=== PATIENT | female | born 1995 | race Caucasian/White ===

== ENCOUNTER 2019-05-21 22:43 | Emergency (ER) | payer BC ==
[2019-05-21] MEDS ORDERED: NA CHLORIDE 0.9% 1,000 ML ONE (23:39)
[2019-05-22] LABS: Urine Blood NEGATIVE (NEG); Urine Glucose NEGATIVE (NEG); Urine Protein NEGATIVE (NEG)
--- NOTE | 2019-05-22 01:03 | ER ---
Nurse's Notes [facility] Name: Pilar Chin Age: 23 yrs Sex: Female : 1995 Arrival Date: 05/21/2019 Time: 22:59 Bed 17 Private MD: Diagnosis: Alcohol abuse with intoxication Presentation: 05/21 23:01 Presenting complaint: EMS states: Friend called EMS Pt was found underneath the stairs, wh Pt was drinking states she had too much too drink, denies taking any other substances. Transition of care: patient was not received from another setting of care. Onset of symptoms was May 21, 2019. Risk Assessment: Do you want to hurt yourself or someone else? Patient reports no desire to harm self or others. Initial Sepsis Screen: Does the patient meet any 2 criteria? No. Patient's initial sepsis screen is negative. Does the patient have a suspected source of infection? No. Patient's initial sepsis screen is negative. Care prior to arrival: None. 23:01 Method Of Arrival: EMS: [facility] 23:01 Acuity: CYNTHIA 3 Triage Assessment: 23:16 General: Appears in no apparent distress. unkempt, Behavior is cooperative, anxious, cc3 Smells of alcohol. Pain: Denies pain. 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 - Social history:: Smoking status: Patient uses tobacco products, unknown amount. - Ebola Screening: : Patient negative for fever greater than or equal to 101.5 degrees Fahrenheit, and additional compatible Ebola Virus Disease symptoms Patient denies exposure to infectious person. - Family history:: not pertinent. - Hospitalizations: : No recent hospitalization is reported. Screenin:03 Abuse screen: Denies threats or abuse. Denies injuries from another. Nutritional screening: No deficits noted. Tuberculosis screening: No symptoms or risk factors identified. Fall Risk None identified. Assessment: 23:10 General: Appears in no apparent distress. unkempt, Behavior is cooperative, anxious, cc3 Smells of alcohol. Pain: Denies pain. Neuro: Level of Consciousness is awake, alert, obeys commands, Oriented to person, place, time. Cardiovascular: Denies chest pain, Capillary refill < 3 seconds Patient's skin is warm and dry. Respiratory: Airway is patent Respiratory effort is even, unlabored, Respiratory pattern is regular, symmetrical. GI: Abdomen is flat. : No signs and/or symptoms were reported regarding the genitourinary system. EENT: No signs and/or symptoms were reported regarding the EENT system. Derm: Skin is intact, is healthy with good turgor, Skin is pink, warm \T\ dry. normal. Musculoskeletal: Circulation, motion, and sensation intact. Range of motion: intact in all extremities. 23:20 Reassessment: Patient freaked out looking for her apartment and car keys and wanting to cc3 speak to the EMS staff who brought her here. Informed charge nurse Karly. 23:30 Reassessment: ED policy change clerk Dru called [facility] and spoke with EMS staff named cc3 Shahid and was told that they got nothing from the patient and that her belongings might be in her friend's house, patient informed but she still freaks out. Charge nurse Karly and Dr. Lucas informed. 05/22 00:00 Reassessment: Patient appears in no apparent distress at this time. Patient and/or cc3 family updated on plan of care and expected duration. Pain level reassessed. Patient's family with her father came and spoke with Dr. Lucas. 00:15 Reassessment: Pt requesting someone to talk to EMS re: her purse, keys and car. Spoke fc with Shahid from EMS and he states that pt only came here with her phone. This was told to pt and her family that were at the bedside. 00:30 Reassessment: Patient intentionally pulled out her IV cannula. cc3 00:34 Reassessment: Patient's father requested for police escort when the patient's discharge cc3 home; [place] police number given to patient's father. 01:00 Reassessment: Patient appears in no apparent distress at this time. Patient and/or cc3 family updated on plan of care and expected duration. Pain level reassessed. Patient is alert, oriented x 3, equal unlabored respirations, skin warm/dry/pink. Dr. Lucas discharged the patient home, no prescription given. IV cannula removed and patient left ER vitally stable and ambulatory with her family and father. Patient denies pain at this time. Patient states feeling better. Vital Signs: 05/21 23:05 BP 101 / 75; Pulse 80; Resp 18; Temp 97.2; Pulse Ox 99% ; wh 05/22 00:44 BP 105 / 67; Pulse 85; Resp 16 S; Pulse Ox 99% on R/A; cc3 ED Course: 05/21 22:59 Patient arrived in ED. 23:03 Triage completed. 23:05 Patient has correct armband on for positive identification. Bed in low position. Call light in reach. Side rails up X 1. Pulse ox on. NIBP on. 23:08 Fernando Lucas MD is Attending Physician. rn 23:10 Arm band placed on right wrist. Patient notified of wait time. cc3 23:16 Yasmin Camejo is Primary Nurse. cc3 23:33 Inserted saline lock: 22 gauge in left antecubital area, using aseptic technique. cm6 05/22 01:00 No provider procedures requiring assistance completed. IV discontinued, intact, cc3 bleeding controlled, No redness/swelling at site. Pressure dressing applied. Administered Medications: 05/21 23:48 Drug: NS 0.9% 1000 ml Route: IV; Rate: 1000 ml; Site: left antecubital; cc3 05/22 00:30 Follow up: Response: No adverse reaction; IV Status: patient intentionally pulled out cc3 her IV; IV Intake: 600ml Intake: 00:30 IV: 600ml; Total: 600ml. cc3 Outcome: 00:51 Discharge ordered by MD. rn 01:00 Discharged to home ambulatory, with family. cc3 01:00 Condition: stable 01:00 Discharge instructions given to patient, family, Instructed on discharge instructions, follow up and referral plans. Demonstrated understanding of instructions, follow-up care. 01:11 Patient left the ED. cc3 Signatures: Karly Parish RN RN Fernando Lucas MD MD rn Habalo, Winsy Yasmin Camejo cc3 Salma Douglass cm6 Corrections: (The following items were deleted from the chart) 00:37 05/21 23:30 Reassessment: ED policy change clerk Dru called [facility] and spoke with EMS cc3 staff named Shahid and was told that they got nothing from the patient and that her belongings might be in her friend's house, patient informed but she still freaks out. Charge nurse Karly and Dr. Lucas informed. cc3 05/22 03:13 00:34 Reassessment: Patient's father requested for police escort when the patient's cc3 discharge home, informed ED policy change clerkalma delia Gonsales and said he will call the police. cc3 03:18 08 23:30 Reassessment: ED policy change clerkalma delia Gonsales called [facility] and spoke with EMS cc3 staff named Shahid and was told that they got nothing from the patient and that her belongings might be in her friend's house, patient informed but she still freaks out and pulled out her IV cannula. Charge nurse Karly and Dr. Lucas informed. cc3
--- NOTE | 2019-05-22 01:04 | EDPHYS ---
Physician Documentation [facility] Name: Pilar Chin Age: 23 yrs Sex: Female : 1995 Arrival Date: 05/21/2019 Time: 22:59 Bed 17 Private MD: ED Physician Fernando Lucas HPI: 05/22 00:18 This 23 yrs old Female presents to ER via EMS with complaints of ETOH Abuse. rn 00:20 Per EMS, patient was drinking today, friend called 911 because not able to wake her up rn and unable to pick her up off ground. Patient more alert upon arrival, no meds given, admits to several drinks of liquor today, denies drug use, no trauma, denies medical complaints. . 00:41 Onset: The symptoms/episode began/occurred today. Severity of symptoms: At their worst rn the symptoms were moderate in the emergency department the symptoms are unchanged. The patient has not experienced similar symptoms in the past. The patient has not recently seen a physician. 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 - Social history:: Smoking status: Patient uses tobacco products, unknown amount. - Ebola Screening: : Patient negative for fever greater than or equal to 101.5 degrees Fahrenheit, and additional compatible Ebola Virus Disease symptoms Patient denies exposure to infectious person. - Family history:: not pertinent. - Hospitalizations: : No recent hospitalization is reported. ROS: 05/22 00:44 Constitutional: Negative for fever, chills, and weight loss, Eyes: Negative for injury, rn pain, redness, and discharge, Neck: Negative for injury, pain, and swelling, Cardiovascular: Negative for chest pain, palpitations, and edema, Respiratory: Negative for shortness of breath, cough, wheezing, and pleuritic chest pain, Abdomen/GI: Negative for abdominal pain, nausea, vomiting, diarrhea, and constipation, Back: Negative for injury and pain, : Negative for injury, bleeding, discharge, and swelling, MS/Extremity: Negative for injury and deformity, Skin: Negative for injury, rash, and discoloration, Neuro: Negative for headache, weakness, numbness, tingling, and seizure. Exam: 00:44 Constitutional: This is a well developed, well nourished patient who is awake, rn tearful, agitated Head/Face: Normocephalic, atraumatic. Eyes: Pupils equal round and reactive to light, extra-ocular motions intact. Lids and lashes normal. Injected sclera. ENT: dry MM Neck: Trachea midline, no thyromegaly or masses palpated, and no cervical lymphadenopathy. Supple, full range of motion without nuchal rigidity, or vertebral point tenderness. No Meningismus. Cardiovascular: Regular rate and rhythm. No pulse deficits. Respiratory: Lungs have equal breath sounds bilaterally, clear to auscultation. No increased work of breathing, no retractions or nasal flaring. Abdomen/GI: soft, non-tender MS/ Extremity: Pulses equal, no cyanosis. Neurovascular intact. Full, normal range of motion. Equal circumference. Neuro: Awake and alert, GCS 15, oriented to person, place, time, and situation. Cranial nerves II-XII grossly intact. Motor strength 5/5 in all extremities. Sensory grossly intact. Vital Signs: 05/21 23:05 BP 101 / 75; Pulse 80; Resp 18; Temp 97.2; Pulse Ox 99% ; wh 05/22 00:44 BP 105 / 67; Pulse 85; Resp 16 S; Pulse Ox 99% on R/A; cc3 MDM: 05/21 23:08 Patient medically screened. rn 05/22 00:44 Differential Diagnosis alcohol intoxication. Data reviewed: vital signs, nurses notes, rn hyperbaric test result(s), and as a result, I will discharge patient. Counseling: I had a detailed discussion with the patient and/or guardian regarding: the historical points, exam findings, and any diagnostic results supporting the discharge/admit diagnosis, lab results, the need for outpatient follow up, to return to the emergency department if symptoms worsen or persist or if there are any questions or concerns that arise at home. Response to treatment: the patient's symptoms have markedly improved after treatment, and as a result, I will discharge patient. Special discussion: I discussed with the patient/guardian in detail that at this point there is no indication for admission to the hospital. It is understood, however, that if the symptoms persist or worsen the patient needs to return immediately for re-evaluation. ED course: Parents here, patient agitated and confronting everyone and accusing people of taking her keys, explained to her that she is intoxicated, originally didn't recall events of arrival, and contacted EMS staff to confirm that they do not have her keys. Parents are going to provide transportation home. NO indication for emergent drug testing given now increasingly alert, ambulatory, normal vitals, and nothing will be done with results of drug screen.. 05/21 23:09 Order name: ETOH Level; Complete Time: 00:17 rn 05/21 23:57 Order name: Urine Dipstick--Ancillary (enter results); Complete Time: 00:17 ag4 05/21 23:09 Order name: Urine Test (obtain specimen); Complete Time: 00:00 rn 05/21 23:09 Order name: IV Start; Complete Time: 23:48 rn 05/21 23:57 Order name: Urine --Ancillary (enter results); Complete Time: 00:17 ag4 Administered Medications: 05/21 23:48 Drug: NS 0.9% 1000 ml Route: IV; Rate: 1000 ml; Site: left antecubital; cc3 05/22 00:30 Follow up: Response: No adverse reaction; IV Status: patient intentionally pulled out cc3 her IV; IV Intake: 600ml Disposition: 05/22/19 00:51 Discharged to Home. Impression: Alcohol abuse with intoxication. - Condition is Stable. - Discharge Instructions: Alcohol Intoxication. - Medication Reconciliation Form, Thank You Letter, Antibiotic Education, Prescription Opioid Use form. - Follow up: Private Physician; When: As needed; Reason: Recheck today's complaints, Re-evaluation by your physician. - Problem is new. - Symptoms have improved. Signatures: Dispatcher [employer] EDMS Fernando Lucas MD MD rn Habalo, Winsy wh Cordel, Charlene cc3 Corrections: (The following items were deleted from the chart) 01:11 00:51 05/22/2019 00:51 Discharged to Home. Impression: Alcohol abuse with intoxication. cc3 Condition is Stable. Forms are Medication Reconciliation Form, Thank You Letter, Antibiotic Education, Prescription Opioid Use. Follow up: Private Physician; When: As needed; Reason: Recheck today's complaints, Re-evaluation by your physician. Problem is new. Symptoms have improved. rn
== END 2019-05-22 01:11 | disposition home or self-care (01) ==
LOC: ER 22:43
DX: F10.129 Alcohol abuse with intoxication, unspecified (principal); Z72.0 Tobacco use
CPT/HCPCS: 36415; 80320; 81025; 81003; 96360; 99284; J7030